=== PATIENT | male | born 1940 | race Caucasian/White ===

== ENCOUNTER 2018-04-17 08:46 | Emergency (ER) | payer MEDICARE ==
[~2018-04-17] VITALS: Ht 175.3 cm; Wt 72.6 kg
[~2018-04-17 08:46] MED LIST: Aspir 8181 MG PO; CHOL10002 PO; DONE10 PO; GABA300; LISI5 PO; MEMA10; MEMA5TAB; METF500C PO; TADA10TA
[2018-04-17] MEDS ORDERED: ATOR80 PO (08:59)
[2018-04-17] MEDS ORDERED: QUET100 PO ×2 (09:04)
[2018-04-17] MEDS ORDERED: MELA3 PO (09:05)
[2018-04-17] MEDS ORDERED: GABA100 PO (09:07)
[2018-04-17 09:39] LABS: BASOPHILS ABSOLUTE AUTO 0.05 K/mm3 (0.00-0.23); BASOPHILS PERCENT AUTO 1 % (0-2); EOSINOPHILS ABSOLUTE AUTO 0.28 K/mm3 (0.00-0.68); EOSINOPHILS PERCENT AUTO 4 % (0-6); Hematocrit 40.6 % (37.0-53.0); Hemoglobin 13.2 g/dL (13.5-17.5); IMMATURE GRAN ABSOLUTE AUTO 0.01 K/mm3 (0.00-0.10); IMMATURE GRAN PERCENT AUTO 0 % (0-1); LYMPHOCYTES ABSOLUTE AUTO 1.03 K/mm3 (0.84-5.20); LYMPHOCYTES PERCENT AUTO 14 % (21-46); MONOCYTES ABSOLUTE AUTO 0.68 K/mm3 (0.16-1.47); MONOCYTES PERCENT AUTO 9 % (4-13); Mean Corpuscular HGB 31.7 pg (26.0-34.0); Mean Corpuscular HGB Conc 32.5 g/dL (31.5-36.5); Mean Corpuscular Volume 97 fL (80-100); Mean Platelet Volume 10.3 fL (9.1-12.4); NEUTROPHILS ABSOLUTE AUTO 5.35 K/mm3 (1.96-9.15); NEUTROPHILS PERCENT AUTO 72 % (41-73); Platelet Count 174 K/mm3 (150-400); RDW Coefficient Variation 13.8 % (11.7-14.2); RDW Standard Deviation 49.5 fL (35.1-46.3); Red Blood Cell Count 4.17 M/mm3 (4.30-5.90)
[2018-04-17 09:58] LABS: Alanine Aminotransfer (ALT/SGP 33 U/L (12-78); Albumin, Blood 3.8 g/dL (3.4-5.0); Albumin/Globulin Ratio 1.2 (0.8-1.8); Alk Phos 104 U/L (50-136); Anion Gap 7 mmol/L (6-16); Aspartate Aminotrans (AST/SGOT 24 U/L (12-37); Bilirubin, Total 0.5 mg/dL (0.1-1.0); Blood Urea Nitrogen 24 mg/dL (8-24); Bun/Creatinine Ratio 27.2 (12.0-20.0); CO2, Blood 27 mmol/L (21-32); Calcium, Blood 9.1 mg/dL (8.5-10.1); Chloride, Blood 108 mmol/L (98-108); Creatinine, Blood 0.88 mg/dL (0.60-1.20); Globulin, Blood 3.1 g/dL (2.2-4.0); Glomerular Filtration Rate >60 (60-); Glucose, Blood 111 mg/dL (70-99); Potassium, Blood 4.1 mmol/L (3.5-5.5); Sodium, Blood 142 mmol/L (136-145); Total Protein, Blood 6.9 g/dL (6.4-8.2)
[2018-04-17 10:09] LABS: Source, Urine Voided
[2018-04-17 10:25] LABS: Bilirubin, Urine Neg (Neg); Blood, Urine Neg (Neg); Glucose Qualitative, Urine Neg (Neg); Ketones, Urine Neg (Neg); Leukocyte Esterase, Urine 1+ (Neg); Nitrite, Urine Neg (Neg); Protein, Urine Neg (Neg); Specific Gravity, Urine 1.015 (1.003-1.022); Urobilinogen, Urine NORM (Normal)
[2018-04-17 10:32] LABS: Appearance, Urine Clear (Clear); Color, Urine Yellow (P-Yellow)
[2018-04-17 10:35] LABS: Hyaline Casts Rare /lpf (0-2)
[2018-04-17 10:37] LABS: Red Blood Cells, Urine 0-2 /hpf (0-2); Squamous Epithelial Cells Mod /hpf (Few)
[2018-04-17 10:38] LABS: Bacteria Few /hpf
[2018-04-17] MEDS ORDERED: CEPH500 PO (10:48)
== END 2018-04-17 11:49 | disposition home or self-care (01) ==
LOC: ER 08:46
PROVIDERS: Emergency Medicine
DX: N39.0 Urinary tract infection, site not specified (principal); F03.90 Unspecified dementia, unspecified severity, without behavioral disturbance, psychotic disturbance, mood disturbance, and anxiety; E11.9 Type 2 diabetes mellitus without complications; Z79.899 Other long term (current) drug therapy; Z79.84 Long term (current) use of oral hypoglycemic drugs; Z79.82 Long term (current) use of aspirin
CPT/HCPCS: 36415; 71046; 80053; 81001; 85025; 87086; 87147; 99284-25

== ENCOUNTER 2018-04-23 15:48 | Emergency (ER) | payer MEDICARE ==
[~2018-04-23] VITALS: Ht 172.7 cm; Wt 65.8 kg
[~2018-04-23 15:48] MED LIST changes: +ATOR80 PO; +CEPH500 PO; +GABA100 PO; +MELA3 PO; +QUET100 PO
[2018-04-23 16:32] LABS: BASOPHILS ABSOLUTE AUTO 0.05 K/mm3 (0.00-0.23); BASOPHILS PERCENT AUTO 1 % (0-2); EOSINOPHILS ABSOLUTE AUTO 0.32 K/mm3 (0.00-0.68); EOSINOPHILS PERCENT AUTO 4 % (0-6); Hematocrit 40.5 % (37.0-53.0); Hemoglobin 13.4 g/dL (13.5-17.5); IMMATURE GRAN ABSOLUTE AUTO 0.01 K/mm3 (0.00-0.10); IMMATURE GRAN PERCENT AUTO 0 % (0-1); LYMPHOCYTES ABSOLUTE AUTO 1.38 K/mm3 (0.84-5.20); LYMPHOCYTES PERCENT AUTO 16 % (21-46); MONOCYTES ABSOLUTE AUTO 0.89 K/mm3 (0.16-1.47); MONOCYTES PERCENT AUTO 10 % (4-13); Mean Corpuscular HGB 32.5 pg (26.0-34.0); Mean Corpuscular HGB Conc 33.1 g/dL (31.5-36.5); Mean Corpuscular Volume 98 fL (80-100); Mean Platelet Volume 10.8 fL (9.1-12.4); NEUTROPHILS ABSOLUTE AUTO 5.93 K/mm3 (1.96-9.15); NEUTROPHILS PERCENT AUTO 69 % (41-73); Platelet Count 197 K/mm3 (150-400); RDW Coefficient Variation 13.9 % (11.7-14.2); RDW Standard Deviation 50.7 fL (35.1-46.3); Red Blood Cell Count 4.12 M/mm3 (4.30-5.90); White Blood Cell Count 8.58 K/mm3 (4.00-11.30)
[2018-04-23 16:46] LABS: Alanine Aminotransfer (ALT/SGP 53 U/L (12-78); Albumin/Globulin Ratio 1.4 (0.8-1.8); Alk Phos 117 U/L (50-136); Anion Gap 8 mmol/L (6-16); Aspartate Aminotrans (AST/SGOT 35 U/L (12-37); Bilirubin, Total 0.4 mg/dL (0.1-1.0); Blood Urea Nitrogen 27 mg/dL (8-24); Bun/Creatinine Ratio 22.5 (12.0-20.0); CO2, Blood 26 mmol/L (21-32); Calcium, Blood 8.6 mg/dL (8.5-10.1); Chloride, Blood 109 mmol/L (98-108); Globulin, Blood 2.9 g/dL (2.2-4.0); Glomerular Filtration Rate >60 (60-); Glucose, Blood 96 mg/dL (70-99); Potassium, Blood 3.9 mmol/L (3.5-5.5); Sodium, Blood 143 mmol/L (136-145); Total Protein, Blood 6.9 g/dL (6.4-8.2); Troponin I <0.015 ng/mL (0.000-0.040)
[2018-04-23 18:25] LABS: Source, Urine Clean Catch
[2018-04-23 18:37] LABS: Bilirubin, Urine Neg (Neg); Blood, Urine Neg (Neg); Glucose Qualitative, Urine Neg (Neg); Ketones, Urine 1+ (Neg); Leukocyte Esterase, Urine Neg (Neg); Nitrite, Urine Neg (Neg); Protein, Urine 1+ (Neg); Specific Gravity, Urine 1.015 (1.003-1.022); Urobilinogen, Urine NORM (Normal)
[2018-04-23 19:07] LABS: Appearance, Urine Clear (Clear); Color, Urine Yellow (P-Yellow)
== END 2018-04-23 19:39 | disposition home or self-care (01) ==
LOC: ER 15:48
PROVIDERS: Emergency Medicine
DX: E86.0 Dehydration (principal); G31.83 Neurocognitive disorder with Lewy bodies; F02.80 Dementia in other diseases classified elsewhere, unspecified severity, without behavioral disturbance, psychotic disturbance, mood disturbance, and anxiety; E11.9 Type 2 diabetes mellitus without complications; Z87.891 Personal history of nicotine dependence; Z79.82 Long term (current) use of aspirin; Z79.84 Long term (current) use of oral hypoglycemic drugs; Z79.899 Other long term (current) drug therapy
CPT/HCPCS: 36415; 51701; 71046; 80053; 84484; 85025; 93005; 93010; 96360; 99284-25; J7030

== ENCOUNTER 2018-04-25 17:42 | Emergency (ER) | payer MEDICARE ==
[~2018-04-25] VITALS: Ht 172.7 cm; Wt 54.4 kg
== END 2018-04-25 20:54 | disposition home or self-care (01) ==
LOC: ER 17:42
DX: S09.90XA Unspecified injury of head, initial encounter (principal); W18.30XA Fall on same level, unspecified, initial encounter; Z79.899 Other long term (current) drug therapy; Z79.84 Long term (current) use of oral hypoglycemic drugs; Z79.82 Long term (current) use of aspirin; E11.9 Type 2 diabetes mellitus without complications; Z87.891 Personal history of nicotine dependence
CPT/HCPCS: 70450; 99284-25

== ENCOUNTER 2018-10-03 09:14 | Inpatient (IN) | payer MEDICARE ==
[~2018-10-03] VITALS: Ht 177.8 cm; Wt 62.9 kg
[~2018-10-03 09:14] MED LIST changes: +ATOR40TA PO; -ATOR80 PO; -CHOL10002 PO; -DONE10 PO; -LISI5 PO; -MELA3 PO; +METF500 PO; -METF500C PO; +Prinivil10 MG PO
[2018-10-03] MEDS ORDERED: DOXY100 PO (10:25)
[2018-10-03] MEDS ORDERED: Razadyne8 MG PO (10:26)
[2018-10-03] MEDS ORDERED: DONE10 PO (18:12)
[2018-10-03] MEDS ORDERED: Neurontin 100100 MG PO (18:13)
[2018-10-03] MEDS ORDERED: MEMA10 PO (18:15)
[2018-10-03] MEDS ORDERED: QUETIAPINE FUMA50 MG PO (18:40)
[2018-10-03] MEDS ORDERED: VITAMIN D35000 UNI1 PO (18:41)
[2018-10-03] MEDS ORDERED: MELATONIN5 M1 PO (18:42)
[2018-10-03 21:20] LABS: BASOPHILS ABSOLUTE AUTO 0.05 K/mm3 (0.00-0.23); BASOPHILS PERCENT AUTO 1 % (0-2); EOSINOPHILS ABSOLUTE AUTO 0.24 K/mm3 (0.00-0.68); EOSINOPHILS PERCENT AUTO 4 % (0-6); Hematocrit 39.5 % (37.0-53.0); Hemoglobin 13.1 g/dL (13.5-17.5); IMMATURE GRAN ABSOLUTE AUTO 0.01 K/mm3 (0.00-0.10); IMMATURE GRAN PERCENT AUTO 0 % (0-1); LYMPHOCYTES PERCENT AUTO 23 % (21-46); MONOCYTES ABSOLUTE AUTO 0.59 K/mm3 (0.16-1.47); MONOCYTES PERCENT AUTO 10 % (4-13); Mean Corpuscular HGB 32.6 pg (26.0-34.0); Mean Corpuscular HGB Conc 33.2 g/dL (31.5-36.5); Mean Corpuscular Volume 98 fL (80-100); Mean Platelet Volume 10.7 fL (9.1-12.4); NEUTROPHILS ABSOLUTE AUTO 3.73 K/mm3 (1.96-9.15); NEUTROPHILS PERCENT AUTO 62 % (41-73); Platelet Count 154 K/mm3 (150-400); RDW Coefficient Variation 13.4 % (11.7-14.2); RDW Standard Deviation 48.8 fL (35.1-46.3); Red Blood Cell Count 4.02 M/mm3 (4.30-5.90); White Blood Cell Count 6.02 K/mm3 (4.00-11.30)
[2018-10-03 21:36] LABS: International Normalized Ratio 1.06; Prothrombin Time Results 11.2 Sec (9.7-11.5)
[2018-10-03 21:45] LABS: Alanine Aminotransfer (ALT/SGP 28 U/L (12-78); Albumin, Blood 3.7 g/dL (3.4-5.0); Albumin/Globulin Ratio 1.3 (0.8-1.8); Alk Phos 87 U/L (50-136); Anion Gap 6 mmol/L (6-16); Aspartate Aminotrans (AST/SGOT 28 U/L (12-37); Bilirubin, Total 0.5 mg/dL (0.1-1.0); Blood Urea Nitrogen 24 mg/dL (8-24); Bun/Creatinine Ratio 28.6 (12.0-20.0); CO2, Blood 25 mmol/L (21-32); Calcium, Blood 8.8 mg/dL (8.5-10.1); Chloride, Blood 110 mmol/L (98-108); Creatinine, Blood 0.84 mg/dL (0.60-1.20); Globulin, Blood 2.8 g/dL (2.2-4.0); Glomerular Filtration Rate >60 (60-); Glucose, Blood 81 mg/dL (70-99); Potassium, Blood 3.9 mmol/L (3.5-5.5); Sodium, Blood 141 mmol/L (136-145); Total Protein, Blood 6.5 g/dL (6.4-8.2)
[2018-10-03 22:55] LABS: Source, Urine Clean Catch
[2018-10-03 22:59] LABS: Bilirubin, Urine Neg (Neg); Blood, Urine Neg (Neg); Glucose Qualitative, Urine Neg (Neg); Ketones, Urine 3+ (Neg); Leukocyte Esterase, Urine Neg (Neg); Nitrite, Urine Neg (Neg); Protein, Urine 2+ (Neg); Urobilinogen, Urine 1+ (Normal)
--- NOTE | 2018-10-03 23:00 | NUR ---
URINE SPECIMEN WAS OBTAINED AND SENT W/NO UTI EVIDENT. HOWEVER SPECIMEN WAS ONLY 2MLS SO WAS SUBOPTIMAL. WILL ATTEMPT TO OBTAIN ANOTHER IF POSSIBLE BUT PT HAS BEEN INCONTINENCT SINCE.
[2018-10-03 23:05] LABS: Appearance, Urine Clear (Clear); Bacteria Not Seen /hpf; Color, Urine Yellow (P-Yellow); Red Blood Cells, Urine Not Seen /hpf (0-2); Squamous Epithelial Cells Few /hpf (Few); White Blood Cells, Urine Not Seen /hpf (0-5)
--- NOTE | 2018-10-04 05:19 | NUR ---
T/F AND SUMMARY: REPORT RECIEVED FROM ROSA MARIA AND PT T/F VIA BED AT 2127. PT IS VERY DROWSY, AWAKENS BRIEFLY TO VOICE BUT IS CONFUSED W/DEMENTIA AND SELDOMLY ANSWERS YES/NO Q'S CORRECTLY. HIS SPEECH IS GARBLED AND MOSTLY NONSENSICAL SO PT'S ASSISTED W/ADMISSION PAPERWORK. HE IS KNOWN TO BECOME AGGITATED AND COMBATIVE SO 2+ STAFF WERE UTILIZED FOR ALL PT CARE. HE WAS IMPULSIVE OOB A FEW TIMES THIS SHIFT AND IS DIFFICULT TO REDIRECT AT TIMES. GAIT IS LIMITED BY LACERATION W/EXPOSED BONE TO L.2ND/3RD TOES. DX WAS APPLIED PER 'S INSTRUCTION IN ER AND THIS WAS LEFT UNDISTURBED THIS SHIFT SO PHOTOS WERE NOT TAKEN. TOES APPEAR DUSKY AND CIRCULATION INTACT BUT CAP REFILL IS DELAYED AND FULL ASSESSMENT OF L.FOOT COULDN'T BE COMPLETED D/T DX. HE REFUSED LOVENOX INJECTION BUT TOOK PO MEDS. NS COMMENCED AT 100 ML/HR X1L. CHEMBG WAS 72 SO 1/2 A YOGURT WAS PROVIDED AND CHEMBG RECHECKED TO HOLD STABLE AT 72. HE HAS BEEN NPO SINCE MN W/SX CX IN PLACE AND POSSIBLE PROCEDURE TODAY. NO ACUTE CHANGES, VSS/AFEBRILE. WCTM AND REPORT TO DAY RN.
[2018-10-04 05:56] LABS: BASOPHILS ABSOLUTE AUTO 0.05 K/mm3 (0.00-0.23); BASOPHILS PERCENT AUTO 1 % (0-2); EOSINOPHILS ABSOLUTE AUTO 0.24 K/mm3 (0.00-0.68); EOSINOPHILS PERCENT AUTO 3 % (0-6); Hematocrit 37.2 % (37.0-53.0); Hemoglobin 12.3 g/dL (13.5-17.5); IMMATURE GRAN ABSOLUTE AUTO 0.04 K/mm3 (0.00-0.10); IMMATURE GRAN PERCENT AUTO 1 % (0-1); LYMPHOCYTES ABSOLUTE AUTO 1.23 K/mm3 (0.84-5.20); LYMPHOCYTES PERCENT AUTO 17 % (21-46); MONOCYTES PERCENT AUTO 10 % (4-13); Mean Corpuscular HGB 32.3 pg (26.0-34.0); Mean Corpuscular HGB Conc 33.1 g/dL (31.5-36.5); Mean Corpuscular Volume 98 fL (80-100); Mean Platelet Volume 11.6 fL (9.1-12.4); NEUTROPHILS ABSOLUTE AUTO 5.09 K/mm3 (1.96-9.15); NEUTROPHILS PERCENT AUTO 69 % (41-73); Platelet Count 167 K/mm3 (150-400); RDW Coefficient Variation 13.5 % (11.7-14.2); RDW Standard Deviation 48.7 fL (35.1-46.3); Red Blood Cell Count 3.81 M/mm3 (4.30-5.90); White Blood Cell Count 7.35 K/mm3 (4.00-11.30)
[2018-10-04 06:32] LABS: Anion Gap 6 mmol/L (6-16); Blood Urea Nitrogen 20 mg/dL (8-24); Bun/Creatinine Ratio 24.9 (12.0-20.0); CO2, Blood 26 mmol/L (21-32); Calcium, Blood 8.9 mg/dL (8.5-10.1); Chloride, Blood 111 mmol/L (98-108); Glomerular Filtration Rate >60 (60-); Glucose, Blood 86 mg/dL (70-99); Potassium, Blood 4.2 mmol/L (3.5-5.5); Sodium, Blood 143 mmol/L (136-145)
--- NOTE | 2018-10-04 10:35 | NUR ---
PT AWOKE FROM SLEEPING AGGITATED AND PULLING AT IV LINE. PRN SEROQUEL GIVEN ORDERED. PT AT BEDSIDE.
--- NOTE | 2018-10-04 10:49 | NUR ---
PT IS NOW RESTING COMFORTABLY IN BED. ROOM TEMP AND LIGHTING WERE ADJUSTED FOR A CALM ATMOSPHERE.
--- NOTE | 2018-10-04 12:26 | NUR ---
PT BUMPED FOOT ON BED FRAME AND SMALL AMOUNT OF BLOOD WAS ON DRESSING. GAUZE REPLACED AND TYLENOL GIVEN FOR PAIN. FAMILY AT BEDSIDE.
--- NOTE | 2018-10-04 16:46 | NUR ---
SHIFT SUMMARY: PT IS ALERT TO SELF AND HAS BEEN RESTING IN BED WITH /VISITORS AT BEDSIDE ON AND OFF. PT WAS AGITATED X 1 AND PRN SEROQUEL WAS GIVEN ORDERED AND PT WAS ABLE TO REST COMFORTABLY IN BED. DRESSING TO LEFT FOOT REMAINS C.D.I. PT CONTINUES TO NEED REMINDERS TO NOT PULL ON IV LINES AND IS REPOSITIONED FREQUENTLY IN BED. PT REMAINS INC AND TOTAL CARE FOR ALL ADLS.
--- NOTE | 2018-10-05 03:33 | NUR ---
LEFT FOOT DRG IT APPEARS THAT PT BUMPED HIS LEFT FOOT ON THE FRAME OF THE BED. PT KICKS AND MOVES HIS LEGS AROUND FREQUENTLY IN BED. BLOOD HAD SOAKED THROUGH THE DRGS. WHEN I REMOVED THE AZAEL WRAP THE GAUZE UNDERNEATH WAS SOAKED WITH BLOOD. I DID NOT REMOVE THE GAUZE DUE TO THE CURRENT CONDITION OF TOES AND THE DEPTH OF LACERATION. DIFFICULT TO PERFORM FULL ASSESSMENT OF TOES DUE TO CURRENT STATE. PHOTOS OBTAINED. REINFORCED WITH CLEAN GAUZE AND REWRAPPED WITH AZAEL BANDAGE. CALLED PLACED TO HOSPITALIST TO NOTIFY HIM OF THE AMOUNT OF BLOOD NOTED UPON REMOVAL OF AZAEL WRAP. PRODUCT CONSULTANT MADE AWARE.
--- NOTE | 2018-10-05 04:18 | NUR ---
BLEEDING/ HOSPITALIST AND ORTHO NOTIFIED HOSPITALIST CALLED AND NOTIFIED OF MODERATE TO HEAVY BLEEDING FROM TOES AROUND 0300. DIFFICULT TO ASSESS FULL AMOUNT DUE TO THE BLOOD SOAKING IN GAUZE. HE STATES TO APPLY PRESSURE WHICH I DID, AND TO NOTIFY PODIATRY IF I WAS STILL CONCERNED. DR. GRESHAM STATES THAT HE WILL NOT COME SEE THE PAITENT. THERE IS NO PODIATRY ON CASE. ORTHO IS ON CASE DR. ARNDT. I CALLED AND NOTIFIED HIM OF THE BLEEDING. HE STATES TO APPLY PRESSURE IN WHICH I DID WITH AZAEL WRAP AND GAUZE. HE GAVE NO FURTHER ORDERS, AND WILL NOT COME TO ASSESS PT AT THIS TIME. PT SCHEDULED FOR PROCEDURE LATER ON TODAY. VALDEMAR GEORGE RN SAW PHOTO OF FOOT AND THE AMOUNT OF BLOOD. SHE RECOMMENDED THAT I CALL AND NOTIFY ORTHO. CASING TESTER NOTIFIED OF CONVERSATION I HAD WITH THU ALEXANDRA. SHE STATES TO REINFORCE FURTHER WITH ABD PAD, AND MORE GAUZE. I DID SO. TOES ARE STILL BLEEDING AT THIS TIME, BUT THERE IS SOME CLOTTING PRESENT. PT FOOT VERY SENSITIVE TO TOUCH. HE OTHERWISE APPEARS STABLE. REINFORCED FURTHER WITH ABD PAD, REWRAPPED WITH AZAEL BANDAGE LEAVING INITAL GAUZE IN PLACED THAT WAS PLACED BY PREVIOUS RN. MONITORING.
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
--- NOTE | 2018-10-05 06:58 | NUR ---
BLEEDING HAS STOPPED. PT VITALS ARE STABLE ON REPEAT CHECK. PT CONTINUES TO DENY PAIN T/O SHIFT AND HAS NO CNVI INDICATORS OF PAIN. ONLY FLICHES WHEN FOOT IS TOUCHED OTHERWISE PT RESTS IN BED. REPORT GIVEN TO DAY RN. PHOTO OF FOOT PLACED IN CHART.
--- NOTE | 2018-10-05 08:08 | NUR ---
RECEIVED CALL FROM OR NURSE STATING THAT DR PRETTY WAS NOT GOING TO PERFORM THE SURGERY ON THE PT'S TOES TODAY AND INSTEAD A COSMETIC SURGEON WOULD BE UP TO SEE THE PT SOME TIME TODAY. PT DRESSING TO LEFT FOOT REMAINS C.D.I. WITH NO CURRENT S/S OF PAIN OR DISCOMFORT.
--- NOTE | 2018-10-05 16:36 | NUR ---
SHIFT SUMMARY: PT HAS BEEN A/O AT BASELINE THIS SHIFT AND WAS MEDICATED X 2 FOR PAIN TO LEFT FOOT/TOES. SINCE SURGERY THIS MORNING WAS CANCELLED PT WAS ASSISTED WITH MEALS. PT RE-POSITIONED EVERY 2 HOURS AND PILLOWS USED FOR POSITIONING AND OFFLOADING PRESSURE. PT CONTINUES TO BE A TOTAL ASSIST FOR ADLS. DRESSING TO LEFT FOOT IS C.D.I. DR PRATT SAW PT THIS AFTERNOON AND STATED THAT HE WOULD DO SURGERY TOMORROW AFTERNOON. WAS IN TO VISIT THIS MORNING. PT HAS BEEN PLEASANTLY CONFUSED THIS SHIFT.
--- NOTE | 2018-10-06 03:31 | NUR ---
HYPOTENSION PT HYPOTENSIVE THIS AM. BP 98/75 ON RIGHT ARM, AND 93/71 ON LEFT. PT VERY SOMNOLENT BUT IS OTHERWISE ASYMPTOMATIC. O2 SATS, TEMP AND PULSE WNL. DR. CLARK NOTIFIED. 1X 500ML CC BOLUS ORDERED. HE WAS NOTIFIED THAT PT WAS ALREADY ON FLUIDS.
--- NOTE | 2018-10-06 04:16 | NUR ---
SHIFT SUMMARY PT HAS BE MUCH MORE LETHARGIC THIS SHIFT. HE HAS SLEEP T/O THE ENTIRETY OF THE SHIFT, AND WAS AWAKE AT THE BEGINNING OF THE SHIFT. HE MOVES WHEN TOUCHED BUT OTHERWISE DOES NOT RESPOND TO STAFF. THERE HAVE BEEN NO S/S OF DISTRESS IN PT. DRGS ON LEFT FOOT DRY AND INTACT, NO BLEEDING. PT HAD ONE LARGE INCONTINENT VOID AT THE BEGINNING OF THE SHIFT, WITH A VERY SMALL BM. PT HYPOTENSIVE WITH AM VTALS. NOTIFIED. 500 CC BOLUS ADMINISTERED. PT TO HAVE SURGERY TODAY SOMETIME IN THE AFTERNOON. NPO AFTER MIDNIGHT PER ORDERS. PT HAS NO CNVI OF PAIN. WILL CONTINUE TO MONITOR AND REPORT TO ONCOMING RN.
--- NOTE | 2018-10-06 11:44 | NUR ---
PT AWOKE FROM SLEEPING AGITATED AND ATTEMPTING TO CLIMB OUT OF BED WITH FACIAL GRIMACE AND LEGS PULLED UP. PT WAS ASSISTED WITH TOILETING AND RE-POSITIONING. PRN MEDS GIVEN ORDERED AND PT IS RESTING IN BED WITH AT BEDSIDE.
--- NOTE | 2018-10-06 17:38 | NUR ---
SHIFT SUMMARY: PT A/O TO BASELINE WITH S/S OF PAIN THIS SHIFT AND WAS MEDICATED WITH PRN MEDS ORDERED. PT SLEPT ON AND OFF AND MADE MULTIPLE ATTEMPTS TO CLIMB OUT OF BED BUT WAS EASILY RE-DIRECTED AND ASSISTED WITH ADLS. PT CONTINUES TO BE INC OF B/B AND A TOTAL ASSIST FOR CARE. WAS IN THIS MORNING AND SPOKE WITH THE CHARGE NURSE ABOUT CONSENT FOR SURGERY, WHICH WAS COMPLETED. MEAL TRAYS HAVE BEEN HELD AWAITING SURGERY. STATED THAT SHE HAD HER OWN DOCTOR APPT IN [place] TODAY AND WOULD NOT BE AVALIABLE BY PHONE MOST OF THE DAY. LATER IN THE AFTERNOON IS WAS BROUGHT TO MY ATTENTION BY DAY SURGERY RN THAT THERE WERE MULTIPLE CONSENTS THAT NEEDED TO BE COMPLETED BEFORE THE SURGERY TO THE 2ND AND 3RD TOE COULD BE COMPLETED. THIS NURSE HAS MADE NURMEROUS UNSUCCESSFUL ATTEMPTS TO CONTACT SIGNIFICANT OTHER. CHARGE NURSE IS AWARE AND SCOTT FROM DR PRATT OFFICE IS AWARE AND HAS MADE HER OWN ATTEMPTS TO CONTACT THE . SCOTT STATED ON OUR LAST PHONE CALL THAT THE NIGHT RN FROM SURGERY SPOKE WITH HER AND SAID IF WE COULD OBTAIN CONSENT WITHIN THE HOUR THEY WOULD STILL BE ABLE TO PERFORM THE SURGERY. THIS NURSE WILL CONTINUE TO CALL THE NUMBER FOR THE AND COMMUNICATE ANY UPDATES TO DR PRATT OFFICE VIA SCOTT.
--- NOTE | 2018-10-06 18:10 | NUR ---
HAS ARRIVED AT BEDSIDE AND RN FROM SURGERY IS AWARE AND STATES THAT SHE WILL COMPLETE THE NEEDED CONSENTS WITH THE . DR PRATT AGRONOMY PROFESSOR, SCOTT WAS NOTIFIED AND SAID SHE WOULD CALL DR PRATT TO LET HIM KNOW THE SURGERY WAS A GREEN LIGHT. IS AT BEDSIDE.
--- NOTE | 2018-10-06 23:27 | NUR ---
Pt back from OR around 2129. Report recieved from icu nurse. VSS. Pt sleepy but responsive. Blood sugar 88- pt given some applesauce. Pt's behavior has been appropriate since returning. Pt cooperative with cares. [facility] checks left foot WNL. Pt does not appear to be in pain. Was able to get him to take medications crushed in applesauce.
--- NOTE | 2018-10-07 06:03 | NUR ---
Shift summary. Pt has slept well most of shift. Pt was given his pm meds and tylenol after he returned from OR. No s/s pain since then. Neuro checks left foot wnl. VSS.Speech very difficult to understand . Pt cooperative with cares. No violent behavior noted.
--- NOTE | 2018-10-07 13:30 | NUR ---
PT UP IN RECLINER SINCE THIS MORNING. CHANGED ATTENDS WITH ASSISTANCE. WOULD CALM DOWN AFTER CHANGED. AT LUNCHTIME CARROT OFFERED WITH FORK AND FORK POKED PTS LIP. HE JERKED BACK AND ATTEMPTED TO SWING HIS FIST. PROVIDED A QUIET MOMENT FOR PT AND LEFT HIM ALONE WHILE KEEPING NEARBY. STARTED TRYING TO GET OUT OF RECLINER AND AGITATION ESCALATED AFTER THIS INCIDENT. GRABBING AT STAFF AND ATTEMPTED TO HIT THEM INCLUDING KARATE CHOP LIKE MOVEMENTS. ASSISTED TO BED AFTER HE GRABBED STAFFS HANDS AND REFUSED TO LET GO WITHOU SWINGING A FIST. IT TOOK 3 PEOPLE TO GET HIM IN BED WITH HIM CONTINUING TO SWING HIS FISTS AND KICK OUT. SOFT WRIST AND ANKLE RESTRAINTS APPLIED AND MD NOTIFIED WELL SIGNIFICANT OTHER.
--- NOTE | 2018-10-07 15:05 | NUR ---
10/07/18 1505 Yue Canseco VERIFICATIONS: EDIT CHART.
--- NOTE | 2018-10-07 18:38 | NUR ---
SHIFT SUMMARY PT CALM MOST OF DAY AFTER RESTRAINTS APPLIED. REMOVED THEM APPROX 3 HOURS AFTER STARTING. HAS ATTEMPTED TO GET OOB WHEN HE IS WET BUT NO ATTEMPTS TO HARM STAFF OR HIMSELF. MANAGER NUCLEAR FED HIM AND NOW S.O. AT BEDSIDE ASSISTING HIM. DRESSING TO LL FOOT INTACT WITH NO STRIKE THROUGH DRAINAGE.
--- NOTE | 2018-10-08 04:13 | NUR ---
NOC SHIFT SUMMARY PT HAS HISTORY OF DEMENTIA AND IS CONFUSED. AT BEGINING OF SHIFT HE WAS FEELING ANXIOUS AND TRIED TO GET OUT OF BED. CALMED AFTER EVENING MED PASS. HE HAS LARGELY SLEPT THIS NIGHT. RESP HAVE BEEN EVEN AND UNLABORED. DRESSING TO L FOOT C/D/I. VSS. HIS SIGNIFICANT OTHER DID VOICE CONCERNS OF HER ABILITY TO CARE FOR HIM AT [facility] THIS NIGHT. PT PRESENLTY APPEARS IN NO ACUTE DISTRESS. WILL CONTINUET TO MONITOR.
--- NOTE | 2018-10-08 18:10 | NUR ---
SHIFT SUMMARY PT SLEPT TIL APPROX NOON AND THEN WOKE UP TO EAT FOOD. S.O. AT BEDSIDE FOR SHORT TIME THIS MORNING AND THEN RETURNED THIS AFTERNOON AND HAS BEEN SITTING WITH HIM. HAS STOOD WITH 2 PERSON ASSISTANCE SEVERAL TIMES THIS AFTERNOON. UP IN RECLINER AND HAS ATTEMPTED TO CLIMB OUT OF CHAIR AT TIMES. MORE EASILY REDIRECTED TODAY THAN YESTERDAY. NO AGGRESSION NOTED UP TO THIS TIME. EATING SUPPER WITH NO PROBLEM. SPEECH MORE CLEAR AND ABLE TO FOLLOW DIRECTIONS BETTER THAN YESTERDAY. DRESSING INTACT TO LLE. SKIN TEAR TO L ELBOW WITH DRESSING REMOVED THIS A.M. AND SMALLER DRESSING APPLIED. LATER FOUND NEW DRESSING GONE AND TEAR SCABBING OVER.
--- NOTE | 2018-10-08 19:45 | NUR ---
ASSUMED CARE OF THE PATIENT: ELISABETH WAS SITTING UP IN HIS CHAIR. WENT HOME FOR THE NIGHT. PLUGGER MAN AND I ASSISTED HIM WITH 2 PERSON ASSIST BACK TO BED. ELISABETH WAS PLEASANT BUT HAD DIFFICULTY FOLLOWING DIRECTIONS ON THE TRANSFER. HE WOULD ANSWER TO HIS NAME ONLY OR THROUGH PAINFUL STIMIULI BUT DID NOT UNDERSTAND ANY QUESTIONS OR INSTRUCTIONS THAT WERE GIVEN. SEE ASSESSMENT FOR DETAILS, MEDS GIVEN PER EMAR. WILL CONTINUE TO MONITOR.
--- NOTE | 2018-10-09 05:05 | NUR ---
SHIFT SUMMARY: PATIENT HAS HAD A UNEVENTFUL NIGHT, SLEPT THROUGHOUT THE NIGHT SINCE HE WAS PLACED IN BED, EXCEPT FOR WHEN ATTENDS AND POSITION CHANGES OCCURED. HE WOULD FALL RIGHT BACK TO SLEEP. MEDS GIVEN PER EMAR, CALL LIGHT STAYED IN REACH, NO ACUTE CHANGES THIS SHIFT, WILL REPORT TO DAY SHIFT RN.
--- NOTE | 2018-10-09 18:42 | NUR ---
SHIFT SUMMARY PT UP IN RECLINER CHAIR TODAY AND IN HALLWAY. DID AMBULATE WITH 2 PERSON ASSIST DOWN HALLWAY. SPEECH BECAME LOUDER AND FASTER JUST AFTER LUNCH AND MADE A FIST BUT WAS TOLD THAT WAS INAPPROPRIATE HE STOPPED. ASSISTED BACK TO BED AND ROOM DIMMED WITH SOFT TOUCH AND PT SETTLED DOWN. PLAYED WITH HIS PILLOWS AND WRAPPED WASHCLOTHES MADE BY O.T. FOR ACTIVITY. DRESSING TO L FOOT CHANGED WITH SUTURES INTACT. S.O. AT BEDSIDE FOR SHORT TIME THIS EVENING.
--- NOTE | 2018-10-10 04:14 | NUR ---
SHIFT SUMMARY: PT IS ALERT AND CONFUSED AT BASELINE, DEMENTIA. PT IS MOSTLY COOPERATIVE WITH CARE, MILDLY COMBATIVE DURING LINEN CHANGE. PT DOES NOT USE HIS CALL LIGHT AND WAS NOT OUT OF BED OVERNIGHT. PT SHOWS NO S/S FOR PAIN, NAUSEA, VOMITING, OR SOB. PT AWAITING SNF PLACEMENT. PT INCONTINENT OVERNIGHT, CHANGED AND CLEANED NEEDED. L. FOOT DRESSING CLEAN AND INTACT. NO ACUTE CHANGES OR COMPLICATIONS THIS SHIFT. WILL CONTINUE TO MONITOR.
--- NOTE | 2018-10-10 18:40 | NUR ---
SHIFT SUMMARY: PATIENT UP TO RECLINER THIS MORNING. PATIENT HAD DIFFICULTY GETTING LEGS UNDER HIM DURING THE INITIAL TRANSFER. REQUIRED 3 STAFF MEMBERS. PATIENT DISPLAYED MILD AGITATION DURING TRANSFER. EASILY DISTRACTED AND CALMED. PATIENT IN RECLINER IN HALLWAY FOR MOST OF THE DAY. PATIENT CALM AND COOPERATIVE. PATIENT SO IN TO VISIT PATIENT MULTIPLE TIMES. PATIENT INCONTINENT OF URINE. NO SIGNS OR SYMPTOMS OF PAIN IN L FOOT THROUGHOUT THE DAY. BANDAGE REMAINED C/D/I. CMS INTACT IN LEFT TOES. IN EVENING, PATIENT STRONGER IN HIS LEGS DURING TRANSFER BACK TO THE BED. ABLE TO STAND AND HOLD HIS WEIGHT FOR ABOUT 30 SECS. CALM DURING THIS TRANSFER.
--- NOTE | 2018-10-10 22:48 | NUR ---
PATIENT SLEEPING AFTER REPOSITIONING. BED ALARM ACTIVATED. WILL CONTINUE TO MONITOR.
--- NOTE | 2018-10-11 03:28 | NUR ---
SHIFT SUMMARY PATIENT HAD NO ACUTE CHANGES OBSERVED THIS SHIFT. AXOX ONE TO SELF. SIGNIFICANT OTHER IN ROOM AT SHIFT CHANGE. TAKES MEDICATION CRUSHED IN A.S. OR SHERBERT. NO IV ACCESS. VSS/AFEBRILE. NO S/S OF PAIN LEFT FOOT T/O SHIFT. BANDAGE C/D/I. SOME AGITATION NOTED DURING ASSESSMENT AND BACK TO RESTING. INCOMPREHENSIBLE SPEECH. BED ALARM ACTIVATED. CALL LIGHT IN REACH. BED IN LOWEST POSITION. WILL CONTINUE TO MONITOR UNTIL DAY SHIFT NURSE ASSUMES CARE.
--- NOTE | 2018-10-11 15:06 | NUR ---
PATIENT SLEPT UNTIL AWOKEN BY STAFF FOR A BED BATH AT 1045. HE CONTINUES TO HAVE CONFUSION AND OFTEN TIMES TRIES TO GET OUT OF CHAIR OR BED. CAMERAS ARE ON HIM. HE IS NOT AGGITATED OR HAVE AGGRESSION, JUST COMPULSIVE AND TRIES TO GET UP UNATTENDED. WAS PRESENT BUT HAD TO LEAVE. WILL CONTINUE TO MONITOR.
--- NOTE | 2018-10-11 15:46 | NUR ---
DURING CARES PATIENT BECAME VERY AGGITATED AND AGGRESSIVE TOWARDS STAFF WHICH INCLUDED BITING, PUNCHING, KICKING AND HEAD BUTTING. IT TOOK 6 STAFF TO PROPERLY RESTRAIN THE PATIENT AND APPLY RESTRAINTS.
--- NOTE | 2018-10-11 18:16 | NUR ---
PATIENT IN RESTRAINTS AT THIS TIME DUE TO ESCALATING AGGRESSIVE BEHAVIOR TO STAFF. WAS NOTIFIED AND IN AGREEMENT . NO ACUTE CHANGES THIS SHIFT.
--- NOTE | 2018-10-12 02:50 | NUR ---
PATIENT SLEEPING MOST OF THE SHIFT. IN RESTRAINTS PER ORDER.
--- NOTE | 2018-10-12 03:06 | NUR ---
SHIFT SUMMARY PATIENT HAD NO ACUTE CHANGES OBSERVED THIS SHIFT. IN FOUR POINT RESTRAINTS. NO VISITORS THIS SHIFT. MEDS CRUSHED IN APPLE SAUCE. NO IV ACCESS. NO S/S OF PAIN IN LEFT FOOT, SOB, AND N/V. PATIENT ABLE TO SLEEP MOST OF THE SHIFT. INCOMPREHENSIBLE SPEECH. BED ALARM ACTIVATED. CALL LIGHT IN REACH. WILL CONTINUE TO MONITOR UNTIL DAY SHIFT NURSE ASSUMES CARE.
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
--- NOTE | 2018-10-12 23:11 | NUR ---
PATIENT SLEEPING. WILL CONTINUE TO MONITOR.
--- NOTE | 2018-10-13 03:20 | NUR ---
SHIFT SUMMARY PATIENT HAD NO ACUTE CHANGES OBSERVED THIS SHIFT. ALERT TO SELF WITH INCOMPREHENSIBLE SPEECH. NO IV ACCESS. VSS/AFEBRILE. DENIES PAIN, SOB, AND N/V. FOUR POINT RESTRAINTS PER ORDER. MEDICATION CRUSHED IN A.S. OR SHERBERT. BED ALARM ACTIVATED. ABLE TO SLEEP THIS SHIFT. CALL LIGHT IN REACH. BED IN LOWEST POSITION. WILL CONTINUE TO MONITOR UNTIL DAY SHIFT NURSE ASSUMES CARE.
[2018-10-13 05:26] LABS: BASOPHILS ABSOLUTE AUTO 0.03 K/mm3 (0.00-0.23); BASOPHILS PERCENT AUTO 0 % (0-2); EOSINOPHILS ABSOLUTE AUTO 0.14 K/mm3 (0.00-0.68); EOSINOPHILS PERCENT AUTO 2 % (0-6); Hematocrit 36.9 % (37.0-53.0); Hemoglobin 12.1 g/dL (13.5-17.5); IMMATURE GRAN ABSOLUTE AUTO 0.03 K/mm3 (0.00-0.10); IMMATURE GRAN PERCENT AUTO 0 % (0-1); LYMPHOCYTES ABSOLUTE AUTO 0.82 K/mm3 (0.84-5.20); LYMPHOCYTES PERCENT AUTO 9 % (21-46); MONOCYTES PERCENT AUTO 9 % (4-13); Mean Corpuscular HGB 31.7 pg (26.0-34.0); Mean Corpuscular HGB Conc 32.8 g/dL (31.5-36.5); Mean Corpuscular Volume 97 fL (80-100); Mean Platelet Volume 10.8 fL (9.1-12.4); NEUTROPHILS PERCENT AUTO 79 % (41-73); Platelet Count 224 K/mm3 (150-400); RDW Coefficient Variation 13.8 % (11.7-14.2); RDW Standard Deviation 48.9 fL (35.1-46.3); Red Blood Cell Count 3.82 M/mm3 (4.30-5.90); White Blood Cell Count 8.72 K/mm3 (4.00-11.30)
[2018-10-13 05:45] LABS: Anion Gap 5 mmol/L (6-16); Blood Urea Nitrogen 28 mg/dL (8-24); Bun/Creatinine Ratio 27.2 (12.0-20.0); CO2, Blood 31 mmol/L (21-32); Calcium, Blood 9.5 mg/dL (8.5-10.1); Chloride, Blood 108 mmol/L (98-108); Creatinine, Blood 1.03 mg/dL (0.60-1.20); Glomerular Filtration Rate >60 (60-); Glucose, Blood 146 mg/dL (70-99); Potassium, Blood 4.2 mmol/L (3.5-5.5); Sodium, Blood 144 mmol/L (136-145)
--- NOTE | 2018-10-13 12:59 | NUR ---
RESTRAINT REMOVAL PT HAS BEEN SLEEPING ALL SHIFT. RESTRAINTS WERE REMOVED AT 1035 DUE TO PT SLEEPING AND NOT TRYING TO HIT OR KICK STAFF. WILL CONTINUE TO MONITOR FOR SAFETY AND FALL RISK. PT'S SIGNIFICANT OTHER AT BEDSIDE. BED ALARM ON FOR SAFETY.
--- NOTE | 2018-10-13 17:56 | NUR ---
SHIFT SUMMARY PT HAS BEEN SLEEPING A LOT OF THE SHIFT. PHYSICAL AND OCCUPATIONAL THERAPY TRIED WORKING WITH PT BUT PT TOO SLEEPY. PT DID SIT ON SIDE OF BED FOR A MOMENT WITH PHYSICAL THERAPY. PT MORE AWAKE THIS EVENING AND ATE 75% OF DINNER. NO ACUTE CHANGES THIS SHIFT. CALL LIGHT IN REACH. WILL CONTINUE TO MONITOR AND REPORT TO ONCOMING RN. BED ALARM ON FOR FALL RISK SAFETY.
--- NOTE | 2018-10-14 04:53 | NUR ---
SHIFT SUMMARY PATIENT VERY SLEEPY. MUMBLES WHEN STAFF TALKS TO PATIENT. PATIENT SLEPT THROUGHOUT THE NIGHT. INCONTINENT OF URINE. PATIENT WAS NOT COMBATIVE. NO NEW CHANGES NOTED THROUGHOUT THE NIGHT. VITALS STABLE. DRESSING ON LEFT FOOT C/D/I.
--- NOTE | 2018-10-14 17:45 | NUR ---
SHIFT SUMMARY PT HAS BEEN AWAKE SINCE RECEIVING A BED BATH LATE MORNING. PT WORKED WITH PHYSICAL THERAPY AND HAS BEEN UP IN CHAIR SINCE. PT CONTINENT OF URINE WHEN THE STAFF ARE ABLE TO BE IN ROOM WHEN PT NEEDS TO GO. STAFF ABLE TO UNDERSTAND PT BETTER TODAY. PT ABLE TO STATE YES/NO WHEN ASKED IF NEEDS SOMETHING (DRINK, BATHROOM, ETC). NO ACUTE CHANGES THIS SHIFT. WAITING FOR PLACEMENT. CHAIR ALARM IN PLACE FOR FALL RISK SAFETY DUE TO PT CONTINUES TO BE CONFUSED AND DOES NOT USE CALL LIGHT FOR ASSISTANCE.
--- NOTE | 2018-10-15 04:45 | NUR ---
SHIFT SUMMARY: 77 Y/O MALE RESTED COMFORTABLY IN BED ALL SHIFT, INCONTINENT URINE WITH STAFF CHANGING AND REPOSITIONING, ALERT TO PERSON ONLY, DENIES PAIN OR NAUSEA, BED ALARM APPLIED, BED LOW POSITION, CALL LIGHT AT SIDE.
--- NOTE | 2018-10-15 17:04 | NUR ---
SHIFT SUMMARY PT AXO TO SELF ONLY. WHEN SIGNIFICANT OTHER ARRIVED, HE WAS UNSURE ABOUT WHO SHE WAS. KATIE ALMEIDA NOTIFIED OF HER ARRIVAL WELL, SEE RECORDS MANAGER NOTE. VSS. PHYSICAL THERAPY AND OCCUPATIONAL THERAPY WORKED WITH PT, SEE NOTE. NO ACUTE CHANGES THIS SHIFT. PT REMAINS FREE FROM RESTRAINTS. BED ALARM ON. UP WITH 2-3 ASSIST TO BSC. UP TO CHAIR FOR LUNCH. PT IN BED AT THIS TIME. BED IN LOW POSITION, CALL LIGHT WITHIN REACH. DRESSING CHANGED THIS SHIFT. NO DRAINAGE NOTED. EDGES APPROXIMATED AND WNL.
--- NOTE | 2018-10-15 23:02 | NUR ---
RESTING COMFORTABLY IN BED AFTER STAFF ASSISTED BACK TO BED X 3 ASSIST, PT INITIALLY STARTED TO KICK AND SWING, HOWEVER; CALMED DOWN AFTER TALKING LOW MONOTONE VOICE, NO MEDICATIONS REQUIRED.
--- NOTE | 2018-10-16 04:23 | NUR ---
SHIFT SUMMARY: 77 Y/O MALE RESTED COMFORTABLY ALL SHIFT, ALERT TO PERSON ONLY, REPOSITIONED BY STAFF, DENIES PAIN OR NAUSEA, BED ALARM APPLIED, BED LOW POSITION, CALL LIGHT AT SIDE.
--- NOTE | 2018-10-16 07:32 | NUR ---
VERIFIED VIDEO MONITORING CALLED SCU MONITOR MARCEL TO VERIFY MONITORING
--- NOTE | 2018-10-16 15:56 | NUR ---
SHIFT SUMMARY PT AMBULATED DOWN [facility] TODAY WITH PT. AWAITING PLACEMENT. FAMILY IS WORKING ON THE ARRANGEMENTS, THEY INFORMED ME. ORDER IS FOR THE NEXT DRESSING CHANGE ON THE LEFT FOOT TO BE DONE ON SaturdayOctober (LAST ONE PERFORMED ON SaturdaySeptember), DRESSING IS C/D/I. CONFUSED, UNAWARE OF LIMITATIONS. SIGNIFICANT OTHER VISITED TODAY. HE DID RECOGNISE HER.
--- NOTE | 2018-10-17 04:52 | NUR ---
SHIFT SUMMARY PT HAS SLEPT T/O SHIFT SINCE EVENING MEDS. PT HAS BEEN TURNED AND CHANGED FREQUENTLY. PT SCROTUM IS VERY RED AND POSSIBLY MAY NEED NYSTATIN POWDER. WILL PASS ON TO DAY RN. PT CURRENTLY ASLEEP AND BREATHING EASY. CALL LIGHT IN REACH.
--- NOTE | 2018-10-17 07:08 | NUR ---
VERIFIED VIDEO MONITORING CALLED SCU MONITOR LATONYA TO VERIFY VIDEO MONITORING
--- NOTE | 2018-10-17 09:41 | NUR ---
PT STATUS VERY SLEEPY THIS MORNING. CAN BE AROUSED. I AM NOT CONFIDENT HE CAN SWALLOW MEDS. HE REFUSED BREAKFAST, FALLING ASLEEP IMMEDIATELY AFTER BEING AROUSED. LESS ALERT THAN YESTERDAY'S SHIFT. I WAS INFORMED THAT HE BECOMES MORE ALERT IN THE AFTERNOONS. WILL CONTINUE TO MONITOR.
--- NOTE | 2018-10-17 13:09 | NUR ---
PT WOKE FOR LUNCH PT INGESTED 100% OF LUNCH. DIET CHANGED TO PUREE WHICH SEEMED TO WORK BETTER FOR THE PT. PT IS MORE ALERT AT THIS TIME
[2018-10-17] MEDS ORDERED: GAVILAX17 GM PO (15:18)
--- NOTE | 2018-10-17 15:55 | NUR ---
DISCHARGE NOTE CALLED [facility] TO GIVE REPORT. CONTACTED JODI THERE. GAVE REPORT ON DIAGNOSES, MEDICATIONS, FOLLOW UP APPOINTMENTS. NO IV ACCESS. MEDICATIONS FAXED TO PREFERRED PHARMACY. PROVIDED THE PT'S WITH A HARD COPY PRESCRIPTION FOR A WHEELCHAIR THE [facility] DOES NOT PROVIDE THOSE. PT DRESSED IN PERSONAL CLOTHING, PERSONAL POSSESSIONS GATHERED FOR PT. DISCHARGE PLANNING ARRANGED FOR TRANSPORT.
--- NOTE | 2018-10-17 16:51 | NUR ---
FAXED 'S DISCHARGE ORDERS FAXED 'S DISCHARGE ORDER/ADDENDUM TO [facility] SO THAT THEY WILL SUPPLY THE WHEELCHAIR ORDERED.
== END 2018-10-17 16:10 | disposition home or self-care (01) | DRG 503 ==
LOC: ER 09:14 → MEDS 19:25
PROVIDERS: Internal Medicine; Podiatrist; ADMIT Internal Medicine
PROC: 0Y6U0Z1 Detachment at Left 3rd Toe, High, Open Approach (ICD-10-PCS; 2018-10-06)
PROC: 0Y6S0Z1 Detachment at Left 2nd Toe, High, Open Approach (ICD-10-PCS; principal; 2018-10-06 12:15)
DX: S92.502B Displaced unspecified fracture of left lesser toe(s), initial encounter for open fracture (principal); E43 Unspecified severe protein-calorie malnutrition; G92 Toxic encephalopathy; G31.83 Neurocognitive disorder with Lewy bodies; R29.6 Repeated falls; E11.42 Type 2 diabetes mellitus with diabetic polyneuropathy; E78.5 Hyperlipidemia, unspecified; Z90.79 Acquired absence of other genital organ(s); X58.XXXA Exposure to other specified factors, initial encounter; Y92.9 Unspecified place or not applicable; F17.210 Nicotine dependence, cigarettes, uncomplicated; Z79.84 Long term (current) use of oral hypoglycemic drugs
CPT/HCPCS: 28660; 36415; 73620; 80048; 80053; 81001; 82947; 85025; 85610; 85730; 88305; 97110; 97112; 97116; 97161; 97166; 97530; 97535; 99284-25; A9270; J0696; J1650; J2250; J2370; J2704; J3010; J7030; J7070; J7120